=== PATIENT | female | born 1960 | race Caucasian/White ===

== ENCOUNTER 2017-06-20 13:17 | Emergency (ER) | payer MEDICAID ==
[~2017-06-20] VITALS: Ht 160 cm; Wt 45.5 kg
[~2017-06-20 13:17] MED LIST: ADV50500 IH; ALBU8HFA PO; DIPH1TAB PO; ONDA4TAB6 PO; PROM25TA14 PO; TRAZ-91 PO
[2017-06-20] MEDS ORDERED: methylPREDNISolone sod succ 125mg/2ml vial IV ONE (14:10)
[2017-06-20] MEDS ORDERED: normal saline 1000ML IV soln IVB ONE (14:10)
[2017-06-20] MEDS ORDERED: ipratropium/albuterol 3ml nebule NEB ONE (14:10)
[2017-06-20] MEDS ORDERED: acetaminophen 325mg tablet PO ONE (14:15)
[2017-06-20] MEDS ORDERED: ibuprofen tablet 400 MG TABLET PO ONE (14:15)
[2017-06-20 14:36] LABS: BASOPHILS % (AUTO) 0.1 % (0-1); EOSINOPHILS % (AUTO) 0 % (0-6); HEMATOCRIT 37.4 % (35.0-45.0); HEMOGLOBIN 13.3 g/dl (12.0-16.0); LYMPHOCYTES # (AUTO) 0.5 X10'3 (1.1-4.8); LYMPHOCYTES % (AUTO) 3.6 % (21-51); MEAN CORPUSCULAR HEMOGLOBIN 33.6 PG (27.0-31.0); MEAN CORPUSCULAR HGB CONC 35.5 % (33.0-36.5); MEAN CORPUSCULAR VOLUME 94.5 FL (78-98); MEAN PLATELET VOLUME 7.7 FL (7.4-10.4); MONOCYTES # (AUTO) 0.5 X10'3 (0-0.9); MONOCYTES % (AUTO) 3.8 % (2-12); NEUTROPHILS # (AUTO) 12.8 X10'3 (1.8-7.7); NEUTROPHILS % (AUTO) 92.5 % (42-75); PLATELET COUNT 117 X10'3 (140-440); RED BLOOD COUNT 3.96 X10'6 (4.20-5.60); RED CELL DISTRIBUTION WIDTH 14.1 % (11.5-14.5); WHITE BLOOD COUNT 13.9 X10'3 (4.5-11.0)
[2017-06-20 14:45] LABS: PARTIAL THROMBOPLASTIN TIME 31 SECONDS (22-32); PROTHROMBIN TIME 10.4 SECONDS (9.0-12.0)
[2017-06-20 14:56] LABS: ALANINE AMINOTRANSFERASE 34 U/L (12-78); ALBUMIN 2.8 G/DL (3.4-5.0); ALBUMIN/GLOBULIN RATIO 0.6 (1.1-1.5); ALKALINE PHOSPHATASE 70 IU/L (46-116); ANION GAP 13 (8-16); ASPARTATE AMINO TRANSFERASE 19 U/L (10-37); BILIRUBIN,TOTAL 0.4 MG/DL (0.1-1.0); BLOOD UREA NITROGEN 7 MG/DL (7-18); BUN/CREATININE RATIO 10.6 (6.6-38.0); CALCIUM 9.3 MG/DL (8.5-10.1); CHLORIDE 94 MMOL/L (99-107); CREATININE 0.66 MG/DL (0.40-0.90); GLUCOSE 114 MG/DL (70-104); POTASSIUM 3.2 MMOL/L (3.5-5.1); SODIUM 129 MMOL/L (135-145); TOTAL CARBON DIOXIDE 21.9 MMOL/L (24-32); TOTAL PROTEIN 7.6 G/DL (6.4-8.2); eGFR > 90 ML/MIN
[2017-06-20] MEDS ORDERED: potassium Cl oral solution 20 MEQ/15 ML PO ONE (15:00)
[2017-06-20 15:21] VITALS: BP 133/84
[2017-06-20] MEDS ORDERED: HYDROcodone/acetaminophen 5mg/325mg tablet PO ONE (16:00)
[2017-06-20] MEDS ORDERED: albuterol 2.5 MG/3 ML nebule NEB ONE (16:00)
[2017-06-20] MEDS ORDERED: IPRA3AMP IH (16:06)
[2017-06-20] MEDS ORDERED: LEVO500T2 PO (16:06)
== END 2017-06-20 16:32 | disposition home or self-care (01) ==
LOC: ER 13:17
DX: J18.1 Lobar pneumonia, unspecified organism (principal); E87.1 Hypo-osmolality and hyponatremia; E87.6 Hypokalemia; J44.9 Chronic obstructive pulmonary disease, unspecified; G89.29 Other chronic pain; K21.9 Gastro-esophageal reflux disease without esophagitis; F12.10 Cannabis abuse, uncomplicated; Z86.19 Personal history of other infectious and parasitic diseases; Z88.5 Allergy status to narcotic agent; Z79.899 Other long term (current) drug therapy; Z90.49 Acquired absence of other specified parts of digestive tract; Z98.890 Other specified postprocedural states
CPT/HCPCS: 36415; 71046; 80053; 83605; 83880; 84484; 85025; 85610; 85730; 87040; 87502; 87503; 93005; 94640; 94760; 96361; 96374; 99285; J2930; J7030

== ENCOUNTER 2019-09-11 19:11 | Emergency (ER) | payer MEDICAID ==
[~2019-09-11] VITALS: Ht 160 cm; Wt 52.3 kg
[~2019-09-11 19:11] MED LIST changes: +IPRA3AMP31 IH
[2019-09-11 20:05] VITALS: BP 129/98
== END 2019-09-11 20:08 | disposition home or self-care (01) ==
LOC: ER 19:12
DX: S93.401A Sprain of unspecified ligament of right ankle, initial encounter (principal); J44.9 Chronic obstructive pulmonary disease, unspecified; K21.9 Gastro-esophageal reflux disease without esophagitis; G89.29 Other chronic pain; F41.9 Anxiety disorder, unspecified; F32.9 Major depressive disorder, single episode, unspecified; F12.90 Cannabis use, unspecified, uncomplicated; F10.20 Alcohol dependence, uncomplicated; Z86.19 Personal history of other infectious and parasitic diseases; Z88.5 Allergy status to narcotic agent; Z79.899 Other long term (current) drug therapy; W19.XXXA Unspecified fall, initial encounter; Y93.89 Activity, other specified; Y92.89 Other specified places as the place of occurrence of the external cause; Y99.8 Other external cause status; Y90.0 Blood alcohol level of less than 20 mg/100 ml
CPT/HCPCS: 73610; 99284

== ENCOUNTER 2020-05-14 11:27 | Emergency (ER) | payer MEDICAID ==
[~2020-05-14] VITALS: Ht 160 cm; Wt 59.1 kg
[2020-05-14] MEDS ORDERED: aspirin 81mg tab.chew PO ONE (11:40)
[2020-05-14 12:10] LABS: BASOPHILS % (AUTO) 0.2 % (0-1); EOSINOPHILS # (AUTO) 0.1 X10'3 (0-0.9); HEMATOCRIT 43.3 % (35.0-45.0); HEMOGLOBIN 14.7 g/dl (12.0-16.0); LYMPHOCYTES # (AUTO) 1.1 X10'3 (1.1-4.8); LYMPHOCYTES % (AUTO) 16.7 % (21-51); MEAN CORPUSCULAR HEMOGLOBIN 31.1 PG (27.0-31.0); MEAN CORPUSCULAR HGB CONC 33.8 g/dL (33.0-36.5); MEAN PLATELET VOLUME 8.3 FL (7.4-10.4); MONOCYTES # (AUTO) 0.7 X10'3 (0-0.9); MONOCYTES % (AUTO) 10.3 % (2-12); NEUTROPHILS # (AUTO) 4.7 X10'3 (1.8-7.7); NEUTROPHILS % (AUTO) 71.8 % (42-75); PLATELET COUNT 151 X10'3 (140-440); RED BLOOD COUNT 4.71 X10'6 (4.20-5.60); RED CELL DISTRIBUTION WIDTH 14.1 % (11.5-14.5); WHITE BLOOD COUNT 6.6 X10'3 (4.5-11.0)
[2020-05-14 12:20] LABS: ALANINE AMINOTRANSFERASE 45 U/L (12-78); ALBUMIN 3.6 G/DL (3.4-5.0); ALBUMIN/GLOBULIN RATIO 0.8 (1.1-1.5); ALKALINE PHOSPHATASE 78 IU/L (46-116); ANION GAP 13 (8-16); ASPARTATE AMINO TRANSFERASE 35 U/L (10-37); BILIRUBIN,TOTAL 0.5 MG/DL (0.1-1.0); BLOOD UREA NITROGEN 10 MG/DL (7-18); BUN/CREATININE RATIO 12.3 (6.6-38.0); CALCIUM 9.7 MG/DL (8.5-10.1); CHLORIDE 100 MMOL/L (99-107); CREATININE 0.81 MG/DL (0.40-0.90); GLUCOSE 82 MG/DL (70-104); SODIUM 135 MMOL/L (135-145); TOTAL CARBON DIOXIDE 21.6 MMOL/L (24-32); TOTAL PROTEIN 8.1 G/DL (6.4-8.2); eGFR 72 ML/MIN
--- NOTE | 2020-05-14 12:21 | NUR ---
PT REFUSED TO GET AN IV PER PT SHE WANTS TO WAIT FOR LAB RESULT IF NEEDED THEN ONLY SHE WILL TAKE IT.
[2020-05-14 13:08] VITALS: BP 117/75
[2020-05-14] MEDS ORDERED: UMEC1DIS PO (19:55)
[2020-05-14] MEDS ORDERED: ALBU90AE (19:55)
[2020-05-14] MEDS ORDERED: TRAZ150T78 PO (19:55)
[2020-05-14] MEDS ORDERED: PROC10TA10 PO (20:02)
[2020-05-14] MEDS ORDERED: MELO-100 PO (20:02)
[2020-05-14] MEDS ORDERED: FLUT1BLS4 PO (20:02)
[2020-05-14] MEDS ORDERED: BACL20TA PO (20:03)
[2020-05-15] MEDS ORDERED: ALBU8HFA PO (08:51)
== END 2020-05-14 13:11 | disposition home or self-care (01) ==
LOC: ER 11:27
DX: R07.89 Other chest pain (principal); R06.02 Shortness of breath; R05 Cough; Z20.822 Contact with and (suspected) exposure to COVID-19; J44.9 Chronic obstructive pulmonary disease, unspecified; K21.9 Gastro-esophageal reflux disease without esophagitis; G89.29 Other chronic pain; F41.9 Anxiety disorder, unspecified; F32.9 Major depressive disorder, single episode, unspecified; F12.90 Cannabis use, unspecified, uncomplicated; F19.90 Other psychoactive substance use, unspecified, uncomplicated; Z86.19 Personal history of other infectious and parasitic diseases; Z90.89 Acquired absence of other organs; Z90.49 Acquired absence of other specified parts of digestive tract; Z98.890 Other specified postprocedural states; Z72.89 Other problems related to lifestyle; Z88.5 Allergy status to narcotic agent; Z79.899 Other long term (current) drug therapy
CPT/HCPCS: 36415; 71045; 80053; 84484; 85025; 87635; 93005; 99285

== ENCOUNTER 2020-05-14 17:41 | Inpatient (IN) | payer MEDICAID ==
[~2020-05-14] VITALS: Ht 154.9 cm; Wt 61.2 kg
[2020-05-14] MEDS ORDERED: LORazepam 2 mg/ml vial IV ONE (19:00)
[2020-05-14 19:16] LABS: ETHANOL 0.041 GM/DL (0.0-0.010); TROPONIN I < 0.04 NG/ML (0.0-0.05)
[2020-05-14] MEDS ORDERED: mag hydrox/Alum hydrox/simeth 30ml oral suspension PO PRN (19:40)
[2020-05-14] MEDS ORDERED: magnesium hydroxide 30ml (MOM) UD suspension PO PRN (19:40)
[2020-05-14] MEDS ORDERED: aminophylline 250mg/10ml inj. IV PRN (19:40)
[2020-05-14] MEDS ORDERED: ondansetron/PF 4mg/2ml inj IV PRN (19:40)
[2020-05-14] MEDS ORDERED: magnesium 2GM in 50ml NS 50 ML IV PRN (19:40)
[2020-05-14] MEDS ORDERED: regadenoson 0.4mg/5ml syringe IV PRN (19:40)
[2020-05-14] MEDS ORDERED: potassium Cl 40MEQ/1/2NS 520ml 520 ML IV PRN ×2 (19:40)
[2020-05-14] MEDS ORDERED: acetaminophen 325mg tablet PO PRN (19:40)
[2020-05-14] MEDS ORDERED: potassium Cl 20 mEq SR tablet PO PRN ×2 (19:40)
[2020-05-14] MEDS ORDERED: nitroGLYCERIN 0.4mg SUBLingual tab SL PRN ×2 (19:40→19:50)
[2020-05-14] MEDS ORDERED: magnesium Cl slow-release 64mg tablet PO PRN (19:40)
[2020-05-14] MEDS ORDERED: metoprolol tartrate 1mg/ml inj IV PRN (19:40)
[2020-05-14] MEDS ORDERED: magnesium 4gm in 100ml NS 100 ML IV PRN (19:40)
[2020-05-14] MEDS ORDERED: aspirin 81mg tab.chew PO ONE (19:50)
[2020-05-14] MEDS ORDERED: ALBU90AE (19:55)
[2020-05-14] MEDS ORDERED: UMEC1DIS PO (19:55)
[2020-05-14] MEDS ORDERED: TRAZ150T78 PO (19:55)
[2020-05-14 19:59] LABS: CLARITY,URINE CLEAR (Clear); COLOR,URINE YELLOW (Yellow); GLUCOSE, URINE NEGATIVE (Neg); KETONES,URINE NEGATIVE (Neg); LEUKOCYTE ESTERASE ,URINE NEGATIVE (Neg); NITRITES, URINE NEGATIVE (Neg); OCCULT BLOOD,URINE NEGATIVE (Neg); PH,URINE 5.5 (4.8-8.0); PROTEIN,URINE NEGATIVE (Neg); UROBILINOGEN,URINE 0.2 E.U/dL (0.2-1.0)
[2020-05-14 20:00] LABS: UA COLLECTION TYPE CLN CATCH MIDSTREAM
[2020-05-14] MEDS: K and/or MAG REPLACEMENT MC SCH (20:00)
[2020-05-14] MEDS ORDERED: FLUT1BLS4 PO (20:02)
[2020-05-14] MEDS ORDERED: PROC10TA10 PO (20:02)
[2020-05-14] MEDS ORDERED: MELO-100 PO (20:02)
[2020-05-14] MEDS ORDERED: BACL20TA PO (20:03)
[2020-05-14 20:10] LABS: URINE AMPHETAMINE SCREEN POSITIVE (Neg); URINE BARBITUATE SCREEN NEGATIVE (Neg); URINE BENZODIAZEPINES SCREEN NEGATIVE (Neg); URINE CANNABINOID SCREEN POSITIVE (Neg); URINE COCAINE SCREEN NEGATIVE (Neg); URINE METHADONE SCREEN NEGATIVE (Neg); URINE OPIATE SCREEN NEGATIVE (Neg); URINE PHENCYCLIDINE SCREEN NEGATIVE (Neg)
[2020-05-14 21:38] VITALS: BP 105/69
--- NOTE | 2020-05-14 22:47 | NUR ---
Page Sent PAGER ID: [phone] MESSAGE: Rosa Ochoa [id number] New admit, came in for Chest Pain. Asking if she can take her PM dose of trazodone & baclofen. Also requesting a nicotine patch and if she can eat something before midnight. thank you
--- NOTE | 2020-05-14 22:48 | NUR ---
Patient in room PCU 3027. I have received report from Charity and had the opportunity to ask questions and assume patient care.
[2020-05-14] MEDS ORDERED: nicotine 21mg patch - 24 hr TD ONE (22:50)
[2020-05-14] MEDS ORDERED: baclofen 10mg tablet PO SCH (23:15)
--- NOTE | 2020-05-14 23:46 | NUR ---
Page Sent promotional table spacer PAGER ID: [phone] MESSAGE: Rosa Ochoa [id number] This patient states she takes 100mg of baclofen at bedtime. When I went to pull the medication it was ten 10 mg tablets to give and I wasn't too sure if that dose was okay to give or not. Thank you, Cameron Granados [phone]
[2020-05-14] MEDS: traZODone 150mg tablet PO SCH (23:56)
[2020-05-15 02:00] VITALS: BP 117/72
--- NOTE | 2020-05-15 06:27 | NUR ---
Problems reprioritized. Patient report given, questions answered & plan of care reviewed with dwaine.
[2020-05-15 06:41] LABS: BASOPHILS % (AUTO) 0.3 % (0-1); EOSINOPHILS # (AUTO) 0.1 X10'3 (0-0.9); EOSINOPHILS % (AUTO) 1.9 % (0-6); HEMATOCRIT 40.2 % (35.0-45.0); HEMOGLOBIN 13.6 g/dl (12.0-16.0); LYMPHOCYTES # (AUTO) 0.9 X10'3 (1.1-4.8); MEAN CORPUSCULAR HEMOGLOBIN 31.3 PG (27.0-31.0); MEAN CORPUSCULAR HGB CONC 33.8 g/dL (33.0-36.5); MEAN CORPUSCULAR VOLUME 92.7 FL (78-98); MEAN PLATELET VOLUME 8.6 FL (7.4-10.4); MONOCYTES # (AUTO) 0.6 X10'3 (0-0.9); MONOCYTES % (AUTO) 12.9 % (2-12); NEUTROPHILS # (AUTO) 2.8 X10'3 (1.8-7.7); NEUTROPHILS % (AUTO) 63.9 % (42-75); PLATELET COUNT 127 X10'3 (140-440); RED BLOOD COUNT 4.33 X10'6 (4.20-5.60); RED CELL DISTRIBUTION WIDTH 14.2 % (11.5-14.5); WHITE BLOOD COUNT 4.3 X10'3 (4.5-11.0)
[2020-05-15 06:57] LABS: ALANINE AMINOTRANSFERASE 37 U/L (12-78); ALBUMIN 3.1 G/DL (3.4-5.0); ALBUMIN/GLOBULIN RATIO 0.8 (1.1-1.5); ALKALINE PHOSPHATASE 75 IU/L (46-116); ANION GAP 8 (8-16); ASPARTATE AMINO TRANSFERASE 27 U/L (10-37); BILIRUBIN,TOTAL 0.5 MG/DL (0.1-1.0); BLOOD UREA NITROGEN 14 MG/DL (7-18); BUN/CREATININE RATIO 18.2 (6.6-38.0); CHLORIDE 104 MMOL/L (99-107); CREATININE 0.77 MG/DL (0.40-0.90); GLUCOSE 98 MG/DL (70-104); POTASSIUM 4.3 MMOL/L (3.5-5.1); SODIUM 139 MMOL/L (135-145); TOTAL CARBON DIOXIDE 26.6 MMOL/L (24-32); TOTAL PROTEIN 7.1 G/DL (6.4-8.2); eGFR 76 ML/MIN
--- NOTE | 2020-05-15 07:29 | NUR ---
PAGER ID: [phone] MESSAGE: Esther PALOMARES 327B: [facility] IS REQUESTING A SECOND TROPONIN BEFORE STRESS TEST. THANKS, EMILE [phone]
[2020-05-15 07:45] VITALS: BP 116/79
[2020-05-15] MEDS: K and/or MAG REPLACEMENT MC SCH ×2 (08:00→20:00)
[2020-05-15] MEDS: aspirin 81mg tab.chew PO SCH (08:00)
[2020-05-15] MEDS: nicotine 21mg patch - 24 hr TD SCH (08:03)
[2020-05-15] MEDS ORDERED: ALBU8HFA PO (08:51)
[2020-05-15] MEDS ORDERED: LORazepam 1 MG tablet PO PRN (09:40)
[2020-05-15] MEDS ORDERED: FLU VACC QS2020-21(6MOS UP)/PF 60 MCG/0.5 ML SYRINGE IMVAC ONE (10:00)
[2020-05-15] MEDS ORDERED: pneumococcal 23-VAL P-sac vacc 25 mcg/0.5ml vial IMVAC ONE (10:00)
[2020-05-15] MEDS: LORazepam 2 mg/ml vial IV PRN ×2 (10:36→19:10)
[2020-05-15 12:00] VITALS: BP 135/82
--- NOTE | 2020-05-15 13:55 | NUR ---
PAGER ID: [phone] MESSAGE: Esther PALOMARES [id number]: PATIENT REQUESTING THAT YOU REVIEW ECHO WITH HER WHEN YOU GET A CHANCE. THANKS! EMILE [phone]
--- NOTE | 2020-05-15 14:17 | NUR ---
Problems reprioritized. Patient report given, questions answered & plan of care reviewed with KRISTY FRANCISCO.
--- NOTE | 2020-05-15 14:21 | NUR ---
Received report from Yissel WAGNER. Pt. is room in no distress at this time.
[2020-05-15 15:00] VITALS: BP 119/77
[2020-05-15] MEDS: morphine 2 MG/ML inj. syringe IV PRN ×2 (16:02→20:02)
[2020-05-15 18:00] VITALS: BP 118/72
--- NOTE | 2020-05-15 18:18 | NUR ---
Gave report to Benita WAGNER.
--- NOTE | 2020-05-15 18:30 | NUR ---
Patient in room PCU 3027. I have received report from Marybeth WAGNER and had the opportunity to ask questions and assume patient care.
[2020-05-15] MEDS: traZODone 150mg tablet PO SCH (20:04)
[2020-05-15] MEDS ORDERED: traZODone 150mg tablet PO SCH (21:00)
[2020-05-15] MEDS ORDERED: BACLOFEN PO SCH (21:00)
[2020-05-15 22:00] VITALS: BP 100/52
[2020-05-16] VITALS (9 sets, daily range): BP systolic 96–130; BP diastolic 56–83
--- NOTE | 2020-05-16 06:14 | NUR ---
Patient in room PCU 3027. I have received report from Benita WAGNER and had the opportunity to ask questions and assume patient care.
--- NOTE | 2020-05-16 06:34 | NUR ---
Problems reprioritized. Patient report given, questions answered & plan of care reviewed with Marlin WAGNER.
[2020-05-16 06:36] LABS: BASOPHILS % (AUTO) 0.2 % (0-1); EOSINOPHILS # (AUTO) 0.1 X10'3 (0-0.9); EOSINOPHILS % (AUTO) 1.7 % (0-6); HEMATOCRIT 41.3 % (35.0-45.0); LYMPHOCYTES # (AUTO) 0.7 X10'3 (1.1-4.8); LYMPHOCYTES % (AUTO) 16.6 % (21-51); MEAN CORPUSCULAR HEMOGLOBIN 31.5 PG (27.0-31.0); MEAN CORPUSCULAR HGB CONC 33.8 g/dL (33.0-36.5); MEAN CORPUSCULAR VOLUME 93.1 FL (78-98); MEAN PLATELET VOLUME 8.7 FL (7.4-10.4); MONOCYTES # (AUTO) 0.5 X10'3 (0-0.9); MONOCYTES % (AUTO) 11.4 % (2-12); NEUTROPHILS # (AUTO) 2.9 X10'3 (1.8-7.7); NEUTROPHILS % (AUTO) 70.1 % (42-75); PLATELET COUNT 119 X10'3 (140-440); RED BLOOD COUNT 4.43 X10'6 (4.20-5.60); RED CELL DISTRIBUTION WIDTH 13.8 % (11.5-14.5); WHITE BLOOD COUNT 4.1 X10'3 (4.5-11.0)
[2020-05-16 07:08] LABS: ALANINE AMINOTRANSFERASE 40 U/L (12-78); ALBUMIN 3.1 G/DL (3.4-5.0); ALBUMIN/GLOBULIN RATIO 0.8 (1.1-1.5); ALKALINE PHOSPHATASE 70 IU/L (46-116); ANION GAP 8 (8-16); ASPARTATE AMINO TRANSFERASE 27 U/L (10-37); BILIRUBIN,TOTAL 0.6 MG/DL (0.1-1.0); BLOOD UREA NITROGEN 14 MG/DL (7-18); BUN/CREATININE RATIO 16.5 (6.6-38.0); CHLORIDE 102 MMOL/L (99-107); CREATININE 0.85 MG/DL (0.40-0.90); GLUCOSE 107 MG/DL (70-104); LIPASE 105 U/L (73-393); MAGNESIUM 1.9 MG/DL (1.5-2.4); PHOSPHORUS 3.8 MG/DL (2.3-4.5); POTASSIUM 4.2 MMOL/L (3.5-5.1); SODIUM 136 MMOL/L (135-145); TOTAL CARBON DIOXIDE 26.2 MMOL/L (24-32); TOTAL PROTEIN 7.2 G/DL (6.4-8.2); eGFR 68 ML/MIN
[2020-05-16] MEDS: K and/or MAG REPLACEMENT MC SCH (08:00)
[2020-05-16] MEDS ORDERED: regadenoson 0.4mg/5ml syringe IV PRN (09:26)
[2020-05-16] MEDS: LORazepam 2 mg/ml vial IV PRN (11:06)
[2020-05-16] MEDS: aspirin 81mg tab.chew PO SCH (11:08)
[2020-05-16] MEDS: nicotine 21mg patch - 24 hr TD SCH (11:09)
[2020-05-16] MEDS ORDERED: PANT40TA54 PO (12:49)
[2020-05-16] MEDS ORDERED: BACL20TA PO (13:27)
--- NOTE | 2020-05-16 13:58 | NUR ---
patient went for lexiscan. seen by Dr bey is for discharge. All Dc instructions given to patient. PIV removed intact from [facility]. Patient drove self home in private car. In stable condition.
== END 2020-05-16 13:50 | disposition home or self-care (01) | DRG 198 ==
LOC: ER 17:41 → ED HOLD 19:40 → OBSVTOIN 19:40 → PCU 3S 21:38
PROVIDERS: ADMIT Family Medicine; ATTEND Family Medicine
PROC: 3E0234Z Introduction of Serum, Toxoid and Vaccine into Muscle, Percutaneous Approach (ICD-10-PCS; principal; 2020-05-15)
PROC: 3E02340 Introduction of Influenza Vaccine into Muscle, Percutaneous Approach (ICD-10-PCS; 2020-05-15)
PROC: 4A02XM4 Measurement of Cardiac Total Activity, External Approach (ICD-10-PCS; 2020-05-16)
PROC: 3E073KZ Introduction of Other Diagnostic Substance into Coronary Artery, Percutaneous Approach (ICD-10-PCS; 2020-05-16)
DX: I24.9 Acute ischemic heart disease, unspecified (principal); J44.9 Chronic obstructive pulmonary disease, unspecified; B19.20 Unspecified viral hepatitis C without hepatic coma; F17.210 Nicotine dependence, cigarettes, uncomplicated; K21.9 Gastro-esophageal reflux disease without esophagitis; G89.29 Other chronic pain; F10.20 Alcohol dependence, uncomplicated; Z20.822 Contact with and (suspected) exposure to COVID-19; F32.9 Major depressive disorder, single episode, unspecified; F15.10 Other stimulant abuse, uncomplicated; F12.10 Cannabis abuse, uncomplicated; F41.9 Anxiety disorder, unspecified; M54.9 Dorsalgia, unspecified; Z23 Encounter for immunization; Z88.5 Allergy status to narcotic agent; Z90.49 Acquired absence of other specified parts of digestive tract; Z79.899 Other long term (current) drug therapy; Z71.51 Drug abuse counseling and surveillance of drug abuser
CPT/HCPCS: 36415; 78452; 80053; 80305; 80320; 81003; 82948; 83690; 83735; 84100; 84484; 85025; 87081; 87635; 90732; 93005; 93017; 93306; 93308; 97116; 97162; 99285; A9500; C9803; G0378; J2060; J2270; J2785; Q2039

== ENCOUNTER 2021-03-15 11:34 | Emergency (ER) | payer MEDICAID ==
[~2021-03-15] VITALS: Ht 160 cm; Wt 81.8 kg
[~2021-03-15 11:34] MED LIST changes: -ADV50500 IH; +ALBU90AE; +BACL20TA PO; +FLUT1BLS4 PO; -IPRA3AMP31 IH; -ONDA4TAB6 PO; +PANT40TA54 PO; +PROC10TA10 PO; -PROM25TA14 PO; -TRAZ-91 PO; +TRAZ150T78 PO
[2021-03-15] MEDS ORDERED: BUPIVAcaine 0.5% W/EPI /PF 30ml vial IM ONE (16:40)
[2021-03-15] MEDS ORDERED: triamcinolone acetonide 40mg/ml inj IM ONE (16:40)
[2021-03-15] MEDS ORDERED: BUPIVAcaine 0.5% W/EPI /PF 10ml vial IJ ONE (16:50)
== END 2021-03-15 17:18 | disposition home or self-care (01) ==
LOC: ER 11:35
DX: M25.512 Pain in left shoulder (principal); K21.9 Gastro-esophageal reflux disease without esophagitis; G89.29 Other chronic pain; F12.10 Cannabis abuse, uncomplicated; F41.9 Anxiety disorder, unspecified; F32.9 Major depressive disorder, single episode, unspecified; J44.9 Chronic obstructive pulmonary disease, unspecified; Z88.5 Allergy status to narcotic agent; X58.XXXA Exposure to other specified factors, initial encounter; Y93.89 Activity, other specified; Y92.89 Other specified places as the place of occurrence of the external cause; Y99.8 Other external cause status
CPT/HCPCS: 20610; 73030; 99284

== ENCOUNTER 2022-02-07 10:56 | Emergency (ER) | payer MEDICAID ==
[~2022-02-07] VITALS: Ht 160 cm; Wt 49.0 kg
[2022-02-07 11:22] VITALS: BP 125/79
== END 2022-02-07 11:52 | disposition home or self-care (01) ==
LOC: ER 10:56
DX: G47.00 Insomnia, unspecified (principal); K21.9 Gastro-esophageal reflux disease without esophagitis; G89.29 Other chronic pain; M54.9 Dorsalgia, unspecified; F41.9 Anxiety disorder, unspecified; Z79.899 Other long term (current) drug therapy; Z90.49 Acquired absence of other specified parts of digestive tract; Z98.890 Other specified postprocedural states; Z88.5 Allergy status to narcotic agent
CPT/HCPCS: 99281

== ENCOUNTER 2022-06-14 09:09 | Emergency (ER) | payer MEDICAID | END 2022-06-14 10:12 | disposition left against medical advice (07) | LOC: ER 09:10 | DX: K92.1 Melena (principal); Z53.21 Procedure and treatment not carried out due to patient leaving prior to being seen by health care provider ==

== ENCOUNTER 2022-06-14 11:16 | Emergency (ER) | payer MEDICAID ==
[~2022-06-14] VITALS: Ht 160 cm; Wt 57.7 kg
[2022-06-14] MEDS ORDERED: pantoprazole 40mg IV 80 MG in normal saline 100ml IV soln 100 ML IV STA (17:21)
[2022-06-14 17:29] LABS: BASOPHILS % (AUTO) 0.3 % (0-1); EOSINOPHILS # (AUTO) 0.2 X10'3 (0-0.9); EOSINOPHILS % (AUTO) 2.5 % (0-6); HEMATOCRIT 46.4 % (35.0-45.0); HEMOGLOBIN 15.4 g/dl (12.0-16.0); LYMPHOCYTES # (AUTO) 1.2 X10'3 (1.1-4.8); LYMPHOCYTES % (AUTO) 16.6 % (21-51); MEAN CORPUSCULAR HEMOGLOBIN 30.2 PG (27.0-31.0); MEAN CORPUSCULAR HGB CONC 33.2 g/dL (33.0-36.5); MEAN PLATELET VOLUME 8.4 FL (7.4-10.4); MONOCYTES # (AUTO) 0.5 X10'3 (0-0.9); MONOCYTES % (AUTO) 7.3 % (2-12); NEUTROPHILS # (AUTO) 5.2 X10'3 (1.8-7.7); NEUTROPHILS % (AUTO) 73.3 % (42-75); PLATELET COUNT 172 X10'3 (140-440); RED CELL DISTRIBUTION WIDTH 14.2 % (11.5-14.5); WHITE BLOOD COUNT 7.1 X10'3 (4.5-11.0)
[2022-06-14 17:38] LABS: ALANINE AMINOTRANSFERASE 33 U/L (12-78); ALBUMIN 3.6 G/DL (3.4-5.0); ALBUMIN/GLOBULIN RATIO 0.8 (1.1-1.5); ALKALINE PHOSPHATASE 86 IU/L (46-116); ANION GAP 9 (8-16); ASPARTATE AMINO TRANSFERASE 37 U/L (10-37); BILIRUBIN,TOTAL 0.9 MG/DL (0.1-1.0); BLOOD UREA NITROGEN 6 MG/DL (7-18); BUN/CREATININE RATIO 7.1 (6.6-38.0); CALCIUM 9.6 MG/DL (8.5-10.1); CHLORIDE 101 MMOL/L (99-107); CREATININE 0.84 MG/DL (0.40-0.90); ETHANOL < 0.010 GM/DL (0.0-0.010); GLUCOSE 97 MG/DL (70-104); POTASSIUM 4.1 MMOL/L (3.5-5.1); SODIUM 135 MMOL/L (135-145); TOTAL CARBON DIOXIDE 24.8 MMOL/L (24-32); TOTAL PROTEIN 8.2 G/DL (6.4-8.2); eGFR 68 ML/MIN
[2022-06-14] MEDS: diatr meglu/diatrizoate 30ml oral sol.-(3 dose) bottle PO SCH ×3 (18:11→19:55)
[2022-06-14 18:15] LABS: APTT 26 SECONDS (22-32)
[2022-06-14] MEDS ORDERED: iohexol 300mg/ml 100ml inj. ONE (18:21)
[2022-06-14 18:56] LABS: OCCULT BLOOD STOOL POSITIVE (Neg)
[2022-06-14 18:57] LABS: CLARITY,URINE CLEAR (Clear); COLOR,URINE YELLOW (Yellow); GLUCOSE, URINE NEGATIVE (Neg); KETONES,URINE NEGATIVE (Neg); LEUKOCYTE ESTERASE ,URINE NEGATIVE (Neg); NITRITES, URINE NEGATIVE (Neg); OCCULT BLOOD,URINE NEGATIVE (Neg); PROTEIN,URINE NEGATIVE (Neg); UROBILINOGEN,URINE 0.2 E.U/dL (0.2-1.0)
[2022-06-14 19:10] LABS: UA COLLECTION TYPE CLN CATCH MIDSTREAM
[2022-06-14] MEDS ORDERED: acetaminophen 325mg tablet PO ONE (19:30)
[2022-06-14] MEDS ORDERED: normal saline 1000ML IV soln IVB ONE (19:30)
[2022-06-14] MEDS ORDERED: LORazepam 2 mg/ml vial IV ONE (19:35)
[2022-06-14 19:48] VITALS: BP 120/70
[2022-06-14] MEDS ORDERED: pantoprazole 40MG/NS 100ML BAG 100 ML IV SCH (21:00)
[2022-06-14] MEDS ORDERED: pantoprazole 40mg IV 40 MG in normal saline 100ml IV soln 100 ML IV SCH (21:00)
== END 2022-06-14 21:22 | disposition home or self-care (01) ==
LOC: ER 11:16
DX: K92.2 Gastrointestinal hemorrhage, unspecified (principal); N28.1 Cyst of kidney, acquired; E27.9 Disorder of adrenal gland, unspecified; J44.9 Chronic obstructive pulmonary disease, unspecified; G89.29 Other chronic pain; F41.9 Anxiety disorder, unspecified; F32.9 Major depressive disorder, single episode, unspecified; F12.90 Cannabis use, unspecified, uncomplicated; Z86.19 Personal history of other infectious and parasitic diseases; Z90.49 Acquired absence of other specified parts of digestive tract; Z98.890 Other specified postprocedural states; Z72.89 Other problems related to lifestyle; Z88.5 Allergy status to narcotic agent; Z79.899 Other long term (current) drug therapy
CPT/HCPCS: 36415; 71045; 74177; 80053; 80320; 81003; 82272; 85025; 85610; 85730; 86885; 86900; 86901; 93005; 96365; 96366; 96375; 99285; C9113; J2060; J3490; J7030; Q9963; Q9967

== ENCOUNTER 2023-02-19 10:19 | Emergency (ER) | payer MEDICAID ==
[~2023-02-19] VITALS: Ht 160 cm; Wt 56.9 kg
[~2023-02-19 10:19] MED LIST changes: -PROC10TA10 PO; +PROC10TA97 PO
[2023-02-19 11:16] LABS: BASOPHILS # (AUTO) 0.1 X10'3 (0-0.2); EOSINOPHILS # (AUTO) 0.1 X10'3 (0-0.9); EOSINOPHILS % (AUTO) 1.4 % (0-6); HEMATOCRIT 43.1 % (35.0-45.0); HEMOGLOBIN 14.5 g/dl (12.0-16.0); LYMPHOCYTES # (AUTO) 0.6 X10'3 (1.1-4.8); LYMPHOCYTES % (AUTO) 8.1 % (21-51); MEAN CORPUSCULAR HEMOGLOBIN 31.1 PG (27.0-31.0); MEAN CORPUSCULAR HGB CONC 33.5 g/dL (33.0-36.5); MEAN CORPUSCULAR VOLUME 92.9 FL (78-98); MEAN PLATELET VOLUME 8.8 FL (7.4-10.4); MONOCYTES # (AUTO) 0.5 X10'3 (0-0.9); MONOCYTES % (AUTO) 6.9 % (2-12); NEUTROPHILS # (AUTO) 5.6 X10'3 (1.8-7.7); NEUTROPHILS % (AUTO) 81.6 % (42-75); PLATELET COUNT 139 X10'3 (140-440); RED BLOOD COUNT 4.64 X10'6 (4.20-5.60); RED CELL DISTRIBUTION WIDTH 13.6 % (11.5-14.5); WHITE BLOOD COUNT 6.9 X10'3 (4.5-11.0)
[2023-02-19 11:33] LABS: ALANINE AMINOTRANSFERASE 30 U/L (12-78); ALBUMIN/GLOBULIN RATIO 0.7 (1.1-1.5); ALKALINE PHOSPHATASE 99 IU/L (46-116); ANION GAP 7 (8-16); ASPARTATE AMINO TRANSFERASE 30 U/L (10-37); BILIRUBIN,TOTAL 0.5 MG/DL (0.1-1.0); BLOOD UREA NITROGEN 5 MG/DL (7-18); CALCIUM 9.8 MG/DL (8.5-10.1); CHLORIDE 100 MMOL/L (99-107); CREATININE 0.83 MG/DL (0.40-0.90); GLUCOSE 100 MG/DL (70-104); POTASSIUM 4.1 MMOL/L (3.5-5.1); SODIUM 136 MMOL/L (135-145); TOTAL CARBON DIOXIDE 28.8 MMOL/L (24-32); TOTAL PROTEIN 7.3 G/DL (6.4-8.2); eCRCL 57 ML/MIN; eGFR 69 ML/MIN
[2023-02-19 11:40] LABS: PRO BRAIN NATRIURETIC PEPTIDE 118 PG/ML (0-125)
[2023-02-19 12:20] VITALS: BP 108/65; PULSE 77; RESP 18; TEMP 98.5; O2SAT 97
[2023-02-19] MEDS ORDERED: DOXY-1 PO (12:46)
[2023-02-19] MEDS ORDERED: PRED50TA PO (12:46)
[2023-02-19] MEDS ORDERED: ALBU18HF2 INH (12:46)
[2023-02-19] MEDS ORDERED: GUAI600T45 PO (12:53)
== END 2023-02-19 12:51 | disposition home or self-care (01) ==
LOC: ER 10:19
DX: J44.1 Chronic obstructive pulmonary disease with (acute) exacerbation (principal); J44.9 Chronic obstructive pulmonary disease, unspecified; G89.29 Other chronic pain; F12.90 Cannabis use, unspecified, uncomplicated; Z72.89 Other problems related to lifestyle; Z90.49 Acquired absence of other specified parts of digestive tract; Z98.891 History of uterine scar from previous surgery; Z88.8 Allergy status to other drugs, medicaments and biological substances; Z79.2 Long term (current) use of antibiotics; Z79.899 Other long term (current) drug therapy
CPT/HCPCS: 36415; 71045; 80053; 83880; 84484; 85025; 99284

== ENCOUNTER 2023-05-08 13:06 | Inpatient (IN) | payer MEDICAID ==
[~2023-05-08] VITALS: Ht 160 cm; Wt 52.2 kg
[~2023-05-08 13:06] MED LIST changes: +ALBU18HF2 INH; +GUAI600T45 PO; +PRED50TA PO
[2023-05-08] MEDS ORDERED: ipratropium/albuterol 3ml nebule NEB ONE (13:25)
[2023-05-08] MEDS ORDERED: methylPREDNISolone sod succ 125mg/2ml vial IV ONE (13:25)
[2023-05-08 13:52] VITALS: PULSE 70; RESP 22
[2023-05-08 13:58] VITALS: PULSE 71; RESP 24
[2023-05-08 14:19] LABS: BASOPHILS % (AUTO) 0.3 % (0-1); EOSINOPHILS # (AUTO) 0.1 X10'3 (0-0.9); EOSINOPHILS % (AUTO) 1.9 % (0-6); HEMOGLOBIN 15.4 g/dl (12.0-16.0); LYMPHOCYTES # (AUTO) 0.9 X10'3 (1.1-4.8); LYMPHOCYTES % (AUTO) 14.6 % (21-51); MEAN CORPUSCULAR HEMOGLOBIN 31.3 PG (27.0-31.0); MEAN CORPUSCULAR HGB CONC 33.4 g/dL (33.0-36.5); MEAN CORPUSCULAR VOLUME 93.7 FL (78-98); MEAN PLATELET VOLUME 8.7 FL (7.4-10.4); MONOCYTES # (AUTO) 0.4 X10'3 (0-0.9); MONOCYTES % (AUTO) 6.8 % (2-12); NEUTROPHILS # (AUTO) 4.5 X10'3 (1.8-7.7); NEUTROPHILS % (AUTO) 76.4 % (42-75); PLATELET COUNT 150 X10'3 (140-440); RED BLOOD COUNT 4.91 X10'6 (4.20-5.60); WHITE BLOOD COUNT 5.9 X10'3 (4.5-11.0)
[2023-05-08] MEDS ORDERED: aspirin 81mg tab.chew PO ONE (14:30)
[2023-05-08] MEDS ORDERED: guaiFENesin/DM 10ml UD oral syrup PO ONE (14:30)
[2023-05-08] MEDS ORDERED: CefTRIAXone 1000mg IM Kit (w/lidocaine diluent) IM ONE (14:30)
[2023-05-08] MEDS ORDERED: ondansetron/PF 4mg/2ml inj IV ONE (14:30)
[2023-05-08] MEDS ORDERED: albuterol 2.5 MG/3 ML nebule CONTNEB PRN (14:30)
[2023-05-08] MEDS ORDERED: acetaminophen 325mg tablet PO ONE (14:30)
[2023-05-08] MEDS ORDERED: normal saline 1000ml 1,000 ML IV ONE (14:30)
[2023-05-08 14:31] LABS: ALBUMIN 3.2 G/DL (3.4-5.0); ANION GAP 10 (8-16); BLOOD UREA NITROGEN 6 MG/DL (7-18); CHLORIDE 100 MMOL/L (99-107); CREATININE 0.75 MG/DL (0.40-0.90); GLUCOSE 81 MG/DL (70-104); SODIUM 135 MMOL/L (135-145); TOTAL CARBON DIOXIDE 25.1 MMOL/L (24-32); eCRCL 62 ML/MIN; eGFR 78 ML/MIN
[2023-05-08 14:37] LABS: POTASSIUM 4.2 MMOL/L (3.5-5.1)
[2023-05-08 14:58] LABS: ABG BASE EXCESS 0.3 mmol/L (-2.0-2.0); ABG HCO3 21.4 mmol/L (22.0-26.0); ABG OXYGEN SATURATION 97.9 % (94-97); ABG PCO2 (T) 26.1 mmHg (32.0-45.0); ABG PH (T) 7.532 (7.350-7.450); ALLEN'S TEST POSITIVE; FCOHb 0.5 % (0.0-3.9); FHHb 2.1 % (0.0-5.0); FLOW 3 L/min; FMetHb 0.1 % (0.0-1.5); FO2Hb 97.3 % (94-97); MODE NASAL CANNULA; PATIENT TEMPERATURE 36.7; TOTAL HEMOGLOBIN 15.4 G/dl (12.0-16.0)
[2023-05-08 15:41] LABS: BILIRUBIN,URINE NEGATIVE (Neg); CLARITY,URINE CLEAR (Clear); COLOR,URINE YELLOW (Yellow); GLUCOSE, URINE NEGATIVE (Neg); KETONES,URINE NEGATIVE (Neg); LEUKOCYTE ESTERASE ,URINE NEGATIVE (Neg); NITRITES, URINE NEGATIVE (Neg); OCCULT BLOOD,URINE NEGATIVE (Neg); PH,URINE 6.5 (4.8-8.0); PROTEIN,URINE NEGATIVE (Neg); UROBILINOGEN,URINE 0.2 E.U/dL (0.2-1.0)
[2023-05-08 15:55] LABS: PRO BRAIN NATRIURETIC PEPTIDE 93 PG/ML (0-125)
[2023-05-08 15:55] LABS: UA COLLECTION TYPE VOIDED
[2023-05-08] MEDS ORDERED: ipratropium 0.5 MG/2.5ML nebule IH SCH (16:00)
[2023-05-08] MEDS ORDERED: mag hydrox/Alum hydrox/simeth 30ml oral suspension PO PRN (16:20)
[2023-05-08] MEDS ORDERED: magnesium hydroxide 30ml (MOM) UD suspension PO PRN (16:20)
[2023-05-08] MEDS ORDERED: docusate sod 100mg capsule PO PRN (16:20)
[2023-05-08] MEDS ORDERED: magnesium 4gm in 100ml NS 100 ML IV PRN (16:20)
[2023-05-08] MEDS ORDERED: nicotine 21mg patch - 24 hr TD ONE (16:20)
[2023-05-08] MEDS ORDERED: ipratropium/albuterol 3ml nebule NEB PRN (16:20)
[2023-05-08] MEDS ORDERED: potassium Cl 40MEQ/1/2NS 520ml 520 ML IV PRN (16:20)
[2023-05-08] MEDS ORDERED: potassium Cl 20 mEq SR tablet PO PRN ×2 (16:20)
[2023-05-08] MEDS ORDERED: ondansetron/PF 4mg/2ml inj IV PRN (16:20)
[2023-05-08] MEDS ORDERED: acetaminophen 325mg tablet PO PRN (16:20)
[2023-05-08] MEDS ORDERED: magnesium Cl slow-release 64mg tablet PO PRN (16:20)
[2023-05-08] MEDS ORDERED: cloNIDine 0.1 mg tablet PO PRN (17:45)
[2023-05-08] MEDS ORDERED: haloperidol lactate 5mg/ml inj IM PRN (17:45)
[2023-05-08] MEDS ORDERED: dicyclomine 10 MG capsule PO PRN (17:45)
[2023-05-08 17:52] LABS: HEMOGLOBIN A1C 4.9 % (4.5-6.2)
[2023-05-08] MEDS ORDERED: TRAZ300T2 PO (18:15)
[2023-05-08] MEDS ORDERED: ONDA-103 PO (18:15)
[2023-05-08] MEDS: ipratropium/albuterol 3ml nebule NEB SCH (20:15)
[2023-05-08] MEDS: thiamine 100mg/ml 2ml inj. IV SCH (20:15)
[2023-05-08] MEDS: heparin, porcine 5000 units/ml vial SQ SCH (20:15)
[2023-05-08 20:16] VITALS: PULSE 70; RESP 18; O2SAT 96
[2023-05-08 20:24] VITALS: PULSE 70; RESP 18
[2023-05-08] MEDS: guaiFENesin/DM 10ml UD oral syrup PO PRN (21:23)
[2023-05-08 22:00] VITALS: BP 118/73; PULSE 77; RESP 15; TEMP 99.5; O2SAT 94
[2023-05-08] MEDS: traZODone 150mg tablet PO SCH (22:51)
[2023-05-09] VITALS (12 sets, daily range): BP systolic 96–129; BP diastolic 50–76; PULSE 60–117; RESP 16–24; TEMP 97.2–98.5; O2SAT 91–98
[2023-05-09] MEDS: ipratropium/albuterol 3ml nebule NEB SCH ×4 (03:00→21:00)
[2023-05-09] MEDS: guaiFENesin/DM 10ml UD oral syrup PO PRN (04:32)
[2023-05-09] MEDS ORDERED: azithromycin/NS 500mg/250ml 250 ML IV SCH ×2 (08:00)
[2023-05-09] MEDS: multivitamins, therapeutics tablet PO SCH (08:23)
[2023-05-09] MEDS: thiamine 100mg/ml 2ml inj. IV SCH ×3 (08:23→19:20)
[2023-05-09] MEDS: methylPREDNISolone sod succ 125mg/2ml vial IV SCH ×2 (08:23→19:20)
[2023-05-09] MEDS: CefTRIAXone/D5W-Rocephin 1gm 50 ML IV SCH (08:23)
[2023-05-09] MEDS: folic acid 1mg/0.2ml inj IV SCH (08:23)
[2023-05-09] MEDS: heparin, porcine 5000 units/ml vial SQ SCH ×2 (08:24→19:20)
[2023-05-09] MEDS: azithromycin/NS 500mg/250ml 250 ML IV SCH (09:17)
[2023-05-09] MEDS: LORazepam 2 mg/ml vial IV PRN ×3 (10:19→20:09)
[2023-05-09] MEDS: guaiFENesin ER 600mg tablet PO PRN (10:29)
[2023-05-09] MEDS: nicotine 21mg patch - 24 hr TD SCH (10:31)
[2023-05-09 12:36] LABS: BASOPHILS % (AUTO) 0.1 % (0-1); EOSINOPHILS % (AUTO) 0 % (0-6); HEMOGLOBIN 14.1 g/dl (12.0-16.0); LYMPHOCYTES # (AUTO) 0.3 X10'3 (1.1-4.8); LYMPHOCYTES % (AUTO) 3.4 % (21-51); MEAN CORPUSCULAR HEMOGLOBIN 30.5 PG (27.0-31.0); MEAN CORPUSCULAR HGB CONC 32.7 g/dL (33.0-36.5); MEAN CORPUSCULAR VOLUME 93.4 FL (78-98); MEAN PLATELET VOLUME 8.6 FL (7.4-10.4); MONOCYTES # (AUTO) 0.2 X10'3 (0-0.9); MONOCYTES % (AUTO) 2.1 % (2-12); NEUTROPHILS # (AUTO) 7.7 X10'3 (1.8-7.7); NEUTROPHILS % (AUTO) 94.4 % (42-75); PLATELET COUNT 124 X10'3 (140-440); RED BLOOD COUNT 4.61 X10'6 (4.20-5.60); RED CELL DISTRIBUTION WIDTH 14.1 % (11.5-14.5); WHITE BLOOD COUNT 8.1 X10'3 (4.5-11.0)
[2023-05-09 13:01] LABS: ALANINE AMINOTRANSFERASE 30 U/L (12-78); ALBUMIN 3.1 G/DL (3.4-5.0); ALBUMIN/GLOBULIN RATIO 0.8 (1.1-1.5); ALKALINE PHOSPHATASE 81 IU/L (46-116); ANION GAP 11 (8-16); ASPARTATE AMINO TRANSFERASE 18 U/L (10-37); BILIRUBIN,TOTAL 0.3 MG/DL (0.1-1.0); BLOOD UREA NITROGEN 9 MG/DL (7-18); BUN/CREATININE RATIO 10.8 (10.0-20.0); CALCIUM 9.7 MG/DL (8.5-10.1); CHLORIDE 105 MMOL/L (99-107); CHOL/HDL RATIO 1.8 (0.00-4.99); CHOLESTEROL 168 MG/DL (0-200); CREATININE 0.83 MG/DL (0.40-0.90); GLUCOSE 99 MG/DL (70-104); HDL CHOLESTEROL 96 MG/DL (35-60); LDL CHOLESTEROL 46 MG/DL (50-100); MAGNESIUM 1.9 MG/DL (1.5-2.4); PHOSPHORUS 2.2 MG/DL (2.3-4.5); POTASSIUM 3.5 MMOL/L (3.5-5.1); SODIUM 138 MMOL/L (135-145); TOTAL CARBON DIOXIDE 22.4 MMOL/L (24-32); TOTAL PROTEIN 7.1 G/DL (6.4-8.2); TRIGLYCERIDES 83 MG/DL (20-135); eCRCL 56 ML/MIN; eGFR 69 ML/MIN
[2023-05-09] MEDS: traZODone 150mg tablet PO SCH (19:21)
[2023-05-10] VITALS (12 sets, daily range): BP systolic 98–127; BP diastolic 53–69; PULSE 71–100; RESP 16–24; TEMP 97.4–99.1; O2SAT 92–97
[2023-05-10] MEDS: ipratropium/albuterol 3ml nebule NEB SCH ×4 (03:00→21:08)
[2023-05-10] MEDS: methylPREDNISolone sod succ 125mg/2ml vial IV SCH ×2 (07:10→20:04)
[2023-05-10] MEDS: heparin, porcine 5000 units/ml vial SQ SCH ×2 (07:10→20:05)
[2023-05-10] MEDS: guaiFENesin ER 600mg tablet PO PRN ×2 (07:10→20:11)
[2023-05-10] MEDS: thiamine 100mg/ml 2ml inj. IV SCH ×2 (07:10→13:00)
[2023-05-10] MEDS: nicotine 21mg patch - 24 hr TD SCH (07:10)
[2023-05-10] MEDS: CefTRIAXone/D5W-Rocephin 1gm 50 ML IV SCH (07:10)
[2023-05-10] MEDS: multivitamins, therapeutics tablet PO SCH (07:10)
[2023-05-10] MEDS: LORazepam 2 mg/ml vial IV PRN ×3 (08:41→20:06)
[2023-05-10] MEDS: azithromycin/NS 500mg/250ml 250 ML IV SCH (08:41)
[2023-05-10] MEDS: folic acid 1mg/0.2ml inj IV SCH (08:41)
[2023-05-10] MEDS ORDERED: thiamine 100mg tablet PO SCH (13:21)
[2023-05-10] MEDS: traZODone 150mg tablet PO SCH (20:05)
[2023-05-10] MEDS: thiamine 100mg tablet PO SCH (20:05)
[2023-05-11] VITALS (7 sets, daily range): BP systolic 104–122; BP diastolic 57–77; PULSE 58–96; RESP 13–18; TEMP 97.5–98.4; O2SAT 93–97
[2023-05-11] MEDS: ipratropium/albuterol 3ml nebule NEB SCH ×2 (03:00→09:50)
[2023-05-11] MEDS ORDERED: folic acid 1mg tablet PO SCH (08:00)
[2023-05-11] MEDS: guaiFENesin ER 600mg tablet PO PRN (09:17)
[2023-05-11] MEDS: thiamine 100mg tablet PO SCH ×2 (09:17→14:42)
[2023-05-11] MEDS: multivitamins, therapeutics tablet PO SCH (09:17)
[2023-05-11] MEDS: CefTRIAXone/D5W-Rocephin 1gm 50 ML IV SCH (09:18)
[2023-05-11] MEDS: nicotine 21mg patch - 24 hr TD SCH (09:18)
[2023-05-11] MEDS: heparin, porcine 5000 units/ml vial SQ SCH (09:18)
[2023-05-11] MEDS: methylPREDNISolone sod succ 125mg/2ml vial IV SCH (09:19)
[2023-05-11] MEDS: azithromycin/NS 500mg/250ml 250 ML IV SCH (10:01)
[2023-05-11] MEDS ORDERED: LEVO-65 PO (12:21)
[2023-05-11] MEDS ORDERED: PRED20TA PO (12:21)
== END 2023-05-11 15:48 | disposition home or self-care (01) | DRG 140 ==
LOC: ER 13:06 → ED HOLD 16:32 → PCU 3S 19:15
PROVIDERS: ADMIT Family Medicine; ATTEND Family Medicine
DX: J44.1 Chronic obstructive pulmonary disease with (acute) exacerbation (principal); J96.21 Acute and chronic respiratory failure with hypoxia; D69.6 Thrombocytopenia, unspecified; E87.3 Alkalosis; I25.10 Atherosclerotic heart disease of native coronary artery without angina pectoris; F32.A Depression, unspecified; F41.9 Anxiety disorder, unspecified; K21.9 Gastro-esophageal reflux disease without esophagitis; Z20.822 Contact with and (suspected) exposure to COVID-19; F10.20 Alcohol dependence, uncomplicated; F17.210 Nicotine dependence, cigarettes, uncomplicated; I25.2 Old myocardial infarction; Z82.49 Family history of ischemic heart disease and other diseases of the circulatory system; Z85.41 Personal history of malignant neoplasm of cervix uteri; Z87.01 Personal history of pneumonia (recurrent); Z79.899 Other long term (current) drug therapy; Z90.49 Acquired absence of other specified parts of digestive tract; Z86.19 Personal history of other infectious and parasitic diseases; Z98.891 History of uterine scar from previous surgery; Z71.6 Tobacco abuse counseling
CPT/HCPCS: 36415; 36600; 71045; 80048; 80053; 80061; 81003; 82803; 83036; 83605; 83735; 83880; 84100; 84484; 85018; 85025; 87040; 87081; 87502; 87503; 87811; 94640; 94760; 97161; 97530; 99285; A4615; G0378; J0456; J0696; J1644; J2060; J2930; J3411; J3490; J7030; J7040

== ENCOUNTER 2023-06-09 15:11 | Inpatient (IN) | payer MEDICAID ==
[~2023-06-09] VITALS: Ht 160 cm; Wt 55.5 kg
[~2023-06-09 15:11] MED LIST changes: -BACL20TA PO; -GUAI600T45 PO; +LEVO-65 PO; +ONDA-103 PO; +PRED20TA PO; -PRED50TA PO; -PROC10TA97 PO; +TRAZ300T2 PO
[2023-06-09] MEDS: methylPREDNISolone sod succ 125mg/2ml vial IV ONE (15:32)
[2023-06-09] MEDS: magnesium 2GM in 50ml NS 50 ML IV ONE (15:32)
[2023-06-09] MEDS: ipratropium 0.5 MG/2.5ML nebule IH ONE (15:59)
[2023-06-09] MEDS: albuterol 2.5 MG/3 ML nebule CONTNEB PRN (15:59)
[2023-06-09 16:01] VITALS: PULSE 79; RESP 20; O2SAT 97
[2023-06-09 16:10] LABS: BASOPHILS # (AUTO) 0.1 X10'3 (0-0.2); BASOPHILS % (AUTO) 3.1 % (0-1); EOSINOPHILS # (AUTO) 0.1 X10'3 (0-0.9); EOSINOPHILS % (AUTO) 2.2 % (0-6); HEMATOCRIT 42.5 % (35.0-45.0); HEMOGLOBIN 14.4 g/dl (12.0-16.0); LYMPHOCYTES # (AUTO) 0.9 X10'3 (1.1-4.8); LYMPHOCYTES % (AUTO) 18.9 % (21-51); MEAN CORPUSCULAR HEMOGLOBIN 30.9 PG (27.0-31.0); MEAN CORPUSCULAR HGB CONC 33.8 g/dL (33.0-36.5); MEAN CORPUSCULAR VOLUME 91.5 FL (78-98); MEAN PLATELET VOLUME 8.6 FL (7.4-10.4); MONOCYTES # (AUTO) 0.3 X10'3 (0-0.9); MONOCYTES % (AUTO) 6.8 % (2-12); NEUTROPHILS # (AUTO) 3.3 X10'3 (1.8-7.7); PLATELET COUNT 149 X10'3 (140-440); RED BLOOD COUNT 4.64 X10'6 (4.20-5.60); RED CELL DISTRIBUTION WIDTH 13.6 % (11.5-14.5); WHITE BLOOD COUNT 4.8 X10'3 (4.5-11.0)
[2023-06-09 16:21] LABS: ALBUMIN 3.1 G/DL (3.4-5.0); ANION GAP 7 (8-16); BLOOD UREA NITROGEN 6 MG/DL (7-18); BUN/CREATININE RATIO 8.2 (10.0-20.0); CALCIUM 9.1 MG/DL (8.5-10.1); CHLORIDE 101 MMOL/L (99-107); CREATININE 0.73 MG/DL (0.40-0.90); GLUCOSE 86 MG/DL (70-104); PRO BRAIN NATRIURETIC PEPTIDE 86 PG/ML (0-125); SODIUM 138 MMOL/L (135-145); TOTAL CARBON DIOXIDE 29.6 MMOL/L (24-32); eCRCL 64 ML/MIN; eGFR 80 ML/MIN
[2023-06-09 16:26] LABS: POTASSIUM 4.4 MMOL/L (3.5-5.1)
[2023-06-09 17:34] VITALS: PULSE 90; RESP 20; O2SAT 96
[2023-06-09] MEDS ORDERED: acetaminophen 325mg tablet PO PRN ×2 (17:40)
[2023-06-09] MEDS ORDERED: HYDROmorphone/PF 0.2 MG/ML SYRINGE IV PRN (17:40)
[2023-06-09] MEDS ORDERED: acetaminophen 650mg rectal suppository RC PRN (17:40)
[2023-06-09] MEDS ORDERED: HYDROcodone/acetaminophen 10/325mg tab PO PRN (17:40)
[2023-06-09] MEDS ORDERED: ondansetron/PF 4mg/2ml inj IV PRN (17:40)
[2023-06-09] MEDS ORDERED: HYDROmorphone inj. 0.5 MG/0.5 ML DISP.SYRIN IV PRN (17:40)
[2023-06-09] MEDS ORDERED: magnesium hydroxide 30ml (MOM) UD suspension PO PRN (17:40)
[2023-06-09] MEDS ORDERED: magnesium 2GM in 50ml NS 50 ML IV PRN (17:40)
[2023-06-09] MEDS ORDERED: potassium Cl 40MEQ/1/2NS 520ml 520 ML IV PRN (17:40)
[2023-06-09] MEDS ORDERED: potassium Cl 20 mEq SR tablet PO PRN ×2 (17:40)
[2023-06-09] MEDS ORDERED: ondansetron 4mg rapidly disintigrating tab PO PRN (17:40)
[2023-06-09] MEDS ORDERED: LORazepam 0.5 MG tablet PO PRN (17:40)
[2023-06-09] MEDS ORDERED: mag hydrox/Alum hydrox/simeth 30ml oral suspension PO PRN (17:40)
[2023-06-09] MEDS ORDERED: ipratropium/albuterol 3ml nebule NEB PRN (17:40)
[2023-06-09] MEDS ORDERED: magnesium Cl slow-release 64mg tablet PO PRN (17:40)
[2023-06-09] MEDS ORDERED: magnesium 4gm in 100ml NS 100 ML IV PRN (17:40)
[2023-06-09] MEDS ORDERED: haloperidol lactate 5mg/ml inj IM PRN (18:10)
[2023-06-09] MEDS: ipratropium/albuterol 3ml nebule NEB SCH (18:52)
[2023-06-09] MEDS: normal saline 1000ml 1,000 ML IV SCH (19:01)
[2023-06-09] MEDS: levoFLOXACIN-Levaquin 500mg/D5 100 ML IV SCH (19:01)
[2023-06-09] MEDS: CefTRIAXone 2gm/D5W 50ml BAG 50 ML IV ONE (19:01)
[2023-06-09] MEDS: nicotine 14mg patch - 24hr TD SCH (19:18)
[2023-06-09] MEDS: K and/or MAG REPLACEMENT MC SCH (20:00)
[2023-06-09] MEDS: docusate sod 100mg capsule PO SCH (20:00)
[2023-06-09 20:30] VITALS: BP 108/60; PULSE 89; RESP 24; TEMP 97.5; O2SAT 96
[2023-06-09] MEDS: methylPREDNISolone sod succ/PF 40mg inj. IV SCH (20:43)
[2023-06-09] MEDS: LORazepam 1 MG tablet PO PRN (20:43)
[2023-06-09] MEDS: traZODone 150mg tablet PO SCH (20:43)
[2023-06-09] MEDS: famotidine 20mg tablet PO SCH (20:43)
[2023-06-09] MEDS: gabapentin 100mg capsule PO SCH (20:43)
[2023-06-09 21:00] VITALS: RESP 24
[2023-06-09] MEDS ORDERED: temazepam 15mg capsule PO PRN (21:00)
[2023-06-09 22:00] VITALS: BP 99/65; PULSE 78; RESP 20; TEMP 98.2; O2SAT 96
[2023-06-09 23:17] VITALS: PULSE 81; RESP 16; O2SAT 94
[2023-06-10] VITALS (12 sets, daily range): BP systolic 111–116; BP diastolic 70–71; PULSE 68–110; RESP 16–24; TEMP 98.1; O2SAT 90–97
[2023-06-10 00:05] LABS: URINE AMPHETAMINE SCREEN NEGATIVE (Neg); URINE BARBITUATE SCREEN NEGATIVE (Neg); URINE BENZODIAZEPINES SCREEN NEGATIVE (Neg); URINE CANNABINOID SCREEN NEGATIVE (Neg); URINE COCAINE SCREEN NEGATIVE (Neg); URINE METHADONE SCREEN NEGATIVE (Neg); URINE OPIATE SCREEN NEGATIVE (Neg); URINE PHENCYCLIDINE SCREEN NEGATIVE (Neg)
[2023-06-10] MEDS ORDERED: guaiFENesin ER 600mg tablet PO PRN (05:50)
[2023-06-10] MEDS: multivitamins, therapeutics tablet PO SCH (07:41)
[2023-06-10] MEDS: HYDROcodone/acetaminophen 5mg/325mg tablet PO PRN (07:41)
[2023-06-10] MEDS: enoxaparin 40mg/0.4ml syringe SUBCUT SCH (07:42)
[2023-06-10 08:26] LABS: BASOPHILS % (AUTO) 0.1 % (0-1); EOSINOPHILS % (AUTO) 0 % (0-6); HEMATOCRIT 41.4 % (35.0-45.0); HEMOGLOBIN 13.8 g/dl (12.0-16.0); LYMPHOCYTES # (AUTO) 0.3 X10'3 (1.1-4.8); LYMPHOCYTES % (AUTO) 5.9 % (21-51); MEAN CORPUSCULAR HEMOGLOBIN 30.8 PG (27.0-31.0); MEAN CORPUSCULAR HGB CONC 33.4 g/dL (33.0-36.5); MEAN CORPUSCULAR VOLUME 92.4 FL (78-98); MONOCYTES # (AUTO) 0.1 X10'3 (0-0.9); NEUTROPHILS # (AUTO) 4.5 X10'3 (1.8-7.7); PLATELET COUNT 132 X10'3 (140-440); RED BLOOD COUNT 4.48 X10'6 (4.20-5.60); RED CELL DISTRIBUTION WIDTH 13.6 % (11.5-14.5); WHITE BLOOD COUNT 4.9 X10'3 (4.5-11.0)
[2023-06-10 08:47] LABS: ALANINE AMINOTRANSFERASE 28 U/L (12-78); ALBUMIN/GLOBULIN RATIO 0.8 (1.1-1.5); ALKALINE PHOSPHATASE 94 IU/L (46-116); ANION GAP 10 (8-16); ASPARTATE AMINO TRANSFERASE 33 U/L (10-37); BILIRUBIN,TOTAL 0.2 MG/DL (0.1-1.0); BLOOD UREA NITROGEN 11 MG/DL (7-18); BUN/CREATININE RATIO 12.6 (10.0-20.0); CHLORIDE 103 MMOL/L (99-107); CREATININE 0.87 MG/DL (0.40-0.90); GLUCOSE 187 MG/DL (70-104); POTASSIUM 4.5 MMOL/L (3.5-5.1); SODIUM 138 MMOL/L (135-145); TOTAL CARBON DIOXIDE 25.2 MMOL/L (24-32); TOTAL PROTEIN 6.8 G/DL (6.4-8.2); eCRCL 54 ML/MIN; eGFR 66 ML/MIN
[2023-06-10] MEDS: LORazepam 2 mg/ml vial IV PRN (12:52)
[2023-06-10] MEDS: haloperidol 5mg tablet PO PRN (14:17)
[2023-06-11] VITALS (10 sets, daily range): BP systolic 111–129; BP diastolic 72–73; PULSE 62–100; RESP 15–20; TEMP 97.3–97.5; O2SAT 96–99
[2023-06-11] MEDS ORDERED: NICO-631 TD (15:56)
[2023-06-11] MEDS ORDERED: PRED10TA PO (15:56)
[2023-06-11] MEDS ORDERED: IPRA3AMP31 IH (15:56)
[2023-06-11] MEDS ORDERED: NALT50TA PO (15:56)
[2023-06-14] MEDS ORDERED: folic acid 1mg tablet PO SCH (08:00)
[2023-06-14] MEDS ORDERED: thiamine 100mg tablet PO SCH (08:00)
== END 2023-06-11 18:12 | disposition home or self-care (01) | DRG 140 ==
LOC: ER 15:11 → ED HOLD 17:44 → EDBEDREQ 19:36 → ORTHO 4S 20:37
PROVIDERS: ADMIT Family Medicine; ATTEND Family Medicine
DX: J44.1 Chronic obstructive pulmonary disease with (acute) exacerbation (principal); J96.21 Acute and chronic respiratory failure with hypoxia; Z20.822 Contact with and (suspected) exposure to COVID-19; F10.10 Alcohol abuse, uncomplicated; F17.210 Nicotine dependence, cigarettes, uncomplicated; G25.81 Restless legs syndrome; G47.00 Insomnia, unspecified; Z79.899 Other long term (current) drug therapy; Z99.81 Dependence on supplemental oxygen; Z82.49 Family history of ischemic heart disease and other diseases of the circulatory system; Z88.5 Allergy status to narcotic agent; Z90.49 Acquired absence of other specified parts of digestive tract; Z98.891 History of uterine scar from previous surgery
CPT/HCPCS: 36415; 71045; 80048; 80053; 80305; 83605; 83735; 83880; 84484; 85025; 87040; 87081; 87811; 93005; 94640; 94760; 97116; 97161; 97530; 99285; A4615; A6258; A6449; A7015; G0378; J0696; J1650; J1956; J2060; J2920; J2930; J3475; J7030

== ENCOUNTER 2023-08-17 15:22 | Emergency (ER) | payer MEDICARE, MEDICAID ==
[~2023-08-17] VITALS: Ht 160 cm; Wt 57.7 kg
[~2023-08-17 15:22] MED LIST changes: +ADV50250 IH; -ALBU18HF2 INH; -ALBU8HFA PO; -ALBU90AE; +ALBU90AE INH; -FLUT1BLS4 PO; +FOLI1CAP8 PO; +GABA600T13 PO; +GUAI600T45 PO; +IPRA3AMP31 NEB; +LACT1CAP76 PO; -LEVO-65 PO; +NICO-631 TD; +NICO-669 SL; -PANT40TA54 PO; +PRED10TA23 PO; -PRED20TA PO; -TRAZ150T78 PO
[2023-08-17 15:24] VITALS: TEMP 98.5
[2023-08-17] MEDS: aspirin 81mg tab.chew PO ONE (16:00)
[2023-08-17 16:09] LABS: BASOPHILS # (AUTO) 0.1 X10'3 (0-0.2); BASOPHILS % (AUTO) 1.9 % (0-1); EOSINOPHILS % (AUTO) 0.6 % (0-6); HEMATOCRIT 37.4 % (35.0-45.0); HEMOGLOBIN 12.4 g/dl (12.0-16.0); LYMPHOCYTES # (AUTO) 0.4 X10'3 (1.1-4.8); LYMPHOCYTES % (AUTO) 8.4 % (21-51); MEAN CORPUSCULAR HEMOGLOBIN 31.1 PG (27.0-31.0); MEAN CORPUSCULAR HGB CONC 33.1 g/dL (33.0-36.5); MEAN PLATELET VOLUME 8.6 FL (7.4-10.4); MONOCYTES # (AUTO) 0.3 X10'3 (0-0.9); MONOCYTES % (AUTO) 6.8 % (2-12); NEUTROPHILS # (AUTO) 3.6 X10'3 (1.8-7.7); NEUTROPHILS % (AUTO) 82.3 % (42-75); PLATELET COUNT 98 X10'3 (140-440); RED BLOOD COUNT 3.98 X10'6 (4.20-5.60); RED CELL DISTRIBUTION WIDTH 14.7 % (11.5-14.5); WHITE BLOOD COUNT 4.3 X10'3 (4.5-11.0)
[2023-08-17 16:29] LABS: APTT 24 SECONDS (22-32); PROTHROMBIN TIME 10.4 SECONDS (9.0-12.0)
[2023-08-17 16:50] LABS: BILIRUBIN,URINE NEGATIVE (Neg); CLARITY,URINE CLEAR (Clear); GLUCOSE, URINE NEGATIVE (Neg); KETONES,URINE NEGATIVE (Neg); LEUKOCYTE ESTERASE ,URINE NEGATIVE (Neg); NITRITES, URINE NEGATIVE (Neg); OCCULT BLOOD,URINE TRACE-INTACT (Neg); PROTEIN,URINE NEGATIVE (Neg); UROBILINOGEN,URINE 0.2 E.U/dL (0.2-1.0)
[2023-08-17 16:59] LABS: COLOR,URINE STRAW (Yellow); UA COLLECTION TYPE CLN CATCH MIDSTREAM
[2023-08-17 17:04] LABS: SQUAMOUS EPITHELIAL CELL,UR FEW /LPF (FEW)
[2023-08-17 17:05] LABS: BACTERIA,URINE FEW /HPF (Neg); RBC,URINE 0-2 /HPF (0-2); WBC,URINE 0-4 /HPF (0-4)
[2023-08-17 17:58] VITALS: BP 105/67; PULSE 69; RESP 17; O2SAT 97
[2023-08-17 19:09] LABS: ALBUMIN 3.2 G/DL (3.4-5.0); ANION GAP 12 (8-16); BLOOD UREA NITROGEN 13 MG/DL (7-18); BUN/CREATININE RATIO 15.9 (10.0-20.0); CALCIUM 9.4 MG/DL (8.5-10.1); CHLORIDE 105 MMOL/L (99-107); CREATININE 0.82 MG/DL (0.40-0.90); GLUCOSE 112 MG/DL (70-104); MAGNESIUM 1.8 MG/DL (1.5-2.4); PRO BRAIN NATRIURETIC PEPTIDE 187 PG/ML (0-125); SODIUM 138 MMOL/L (135-145); TOTAL CARBON DIOXIDE 21.4 MMOL/L (24-32); eCRCL 57 ML/MIN; eGFR 70 ML/MIN
== END 2023-08-17 21:26 | disposition left against medical advice (07) ==
LOC: ER 15:23
DX: G45.9 Transient cerebral ischemic attack, unspecified (principal); J44.1 Chronic obstructive pulmonary disease with (acute) exacerbation; R73.9 Hyperglycemia, unspecified; K21.9 Gastro-esophageal reflux disease without esophagitis; Z88.5 Allergy status to narcotic agent; Z79.899 Other long term (current) drug therapy; Z90.49 Acquired absence of other specified parts of digestive tract
CPT/HCPCS: 36415; 70450; 71045; 80048; 81001; 82948; 83735; 83880; 84484; 85025; 85610; 85730; 93005; 99285

== ENCOUNTER 2023-10-02 14:07 | Inpatient (IN) | payer MEDICARE, MEDICAID ==
[~2023-10-02] VITALS: Ht 160 cm; Wt 63.9 kg
[~2023-10-02 14:07] MED LIST changes: -ADV50250 IH; -ALBU90AE INH; -PRED10TA23 PO
[2023-10-02 15:33] LABS: BASOPHILS % (AUTO) 0.4 % (0-1); EOSINOPHILS # (AUTO) 0.3 X10'3 (0-0.9); EOSINOPHILS % (AUTO) 5.9 % (0-6); HEMATOCRIT 37.4 % (35.0-45.0); HEMOGLOBIN 12.4 g/dl (12.0-16.0); LYMPHOCYTES # (AUTO) 0.8 X10'3 (1.1-4.8); LYMPHOCYTES % (AUTO) 17.8 % (21-51); MEAN CORPUSCULAR HEMOGLOBIN 30.8 PG (27.0-31.0); MEAN CORPUSCULAR VOLUME 93.3 FL (78-98); MEAN PLATELET VOLUME 8.5 FL (7.4-10.4); MONOCYTES # (AUTO) 0.5 X10'3 (0-0.9); MONOCYTES % (AUTO) 10.4 % (2-12); NEUTROPHILS % (AUTO) 65.5 % (42-75); PLATELET COUNT 121 X10'3 (140-440); RED BLOOD COUNT 4.01 X10'6 (4.20-5.60); RED CELL DISTRIBUTION WIDTH 13.2 % (11.5-14.5); WHITE BLOOD COUNT 4.5 X10'3 (4.5-11.0)
[2023-10-02 15:54] LABS: ALBUMIN 3.1 G/DL (3.4-5.0); ANION GAP 11 (8-16); BLOOD UREA NITROGEN 6 MG/DL (7-18); BUN/CREATININE RATIO 7.4 (10.0-20.0); CALCIUM 9.2 MG/DL (8.5-10.1); CHLORIDE 98 MMOL/L (99-107); CREATININE 0.81 MG/DL (0.40-0.90); GLUCOSE 88 MG/DL (70-104); POTASSIUM 4.1 MMOL/L (3.5-5.1); PRO BRAIN NATRIURETIC PEPTIDE 111 PG/ML (0-125); SODIUM 134 MMOL/L (135-145); TOTAL CARBON DIOXIDE 25.1 MMOL/L (24-32); eCRCL 57 ML/MIN; eGFR 71 ML/MIN
[2023-10-02] MEDS ORDERED: magnesium 2GM in 50ml NS 50 ML IV PRN (15:55)
[2023-10-02] MEDS ORDERED: potassium Cl 20 mEq SR tablet PO PRN ×2 (15:55)
[2023-10-02] MEDS ORDERED: acetaminophen 325mg tablet PO PRN (15:55)
[2023-10-02] MEDS ORDERED: mag hydrox/Alum hydrox/simeth 30ml oral suspension PO PRN (15:55)
[2023-10-02] MEDS ORDERED: ipratropium/albuterol 3ml nebule NEB PRN ×2 (15:55)
[2023-10-02] MEDS ORDERED: potassium Cl 40MEQ/1/2NS 520ml 520 ML IV PRN (15:55)
[2023-10-02] MEDS ORDERED: magnesium hydroxide 30ml (MOM) UD suspension PO PRN (15:55)
[2023-10-02] MEDS ORDERED: magnesium Cl slow-release 64mg tablet PO PRN (15:55)
[2023-10-02] MEDS ORDERED: magnesium 4gm in 100ml NS 100 ML IV PRN (15:55)
[2023-10-02] MEDS ORDERED: LORA10TA7 PO (16:10)
[2023-10-02] MEDS ORDERED: ROPI0.2544 PO (16:10)
[2023-10-02] MEDS: methylPREDNISolone sod succ 125mg/2ml vial IV SCH (16:11)
[2023-10-02] MEDS: CefTRIAXone/D5W-Rocephin 1gm 50 ML IV ONE ×2 (16:11→17:07)
[2023-10-02] MEDS: ipratropium/albuterol 3ml nebule NEB PRN (16:16)
[2023-10-02 16:18] VITALS: PULSE 70; RESP 16; O2SAT 100
[2023-10-02 16:24] VITALS: PULSE 73; RESP 15
[2023-10-02 16:43] LABS: HEMOGLOBIN A1C 4.7 % (4.5-6.2)
[2023-10-02 19:18] VITALS: PULSE 80; RESP 16; O2SAT 95
[2023-10-02 19:24] VITALS: PULSE 80; RESP 16
[2023-10-02] MEDS: docusate sod 100mg capsule PO SCH (19:45)
[2023-10-02] MEDS: K and/or MAG REPLACEMENT MC SCH (19:57)
[2023-10-03] VITALS (13 sets, daily range): BP systolic 85–141; BP diastolic 47–77; PULSE 68–110; RESP 14–20; TEMP 97.1–97.8; O2SAT 92–97
[2023-10-03] MEDS: guaiFENesin/DM 10ml UD oral syrup PO PRN (02:22)
[2023-10-03] MEDS: HYDROcodone/acetaminophen 5mg/325mg tablet PO PRN (08:03)
[2023-10-03] MEDS: enoxaparin 40mg/0.4ml syringe SUBCUT SCH (08:04)
[2023-10-03] MEDS: CefTRIAXone/D5W-Rocephin 1gm 50 ML IV SCH (08:09)
[2023-10-03 08:25] LABS: BASOPHILS % (AUTO) 0.2 % (0-1); EOSINOPHILS % (AUTO) 0.1 % (0-6); HEMATOCRIT 39.1 % (35.0-45.0); HEMOGLOBIN 12.8 g/dl (12.0-16.0); LYMPHOCYTES # (AUTO) 0.3 X10'3 (1.1-4.8); LYMPHOCYTES % (AUTO) 6.6 % (21-51); MEAN CORPUSCULAR HEMOGLOBIN 30.6 PG (27.0-31.0); MEAN CORPUSCULAR HGB CONC 32.7 g/dL (33.0-36.5); MEAN CORPUSCULAR VOLUME 93.4 FL (78-98); MEAN PLATELET VOLUME 9.2 FL (7.4-10.4); MONOCYTES # (AUTO) 0.1 X10'3 (0-0.9); MONOCYTES % (AUTO) 1.7 % (2-12); NEUTROPHILS % (AUTO) 91.4 % (42-75); PLATELET COUNT 112 X10'3 (140-440); RED BLOOD COUNT 4.19 X10'6 (4.20-5.60); RED CELL DISTRIBUTION WIDTH 13.5 % (11.5-14.5); WHITE BLOOD COUNT 4.4 X10'3 (4.5-11.0)
[2023-10-03] MEDS: ondansetron/PF 4mg/2ml inj IV PRN (08:27)
[2023-10-03 08:46] LABS: ALANINE AMINOTRANSFERASE 42 U/L (12-78); ALBUMIN/GLOBULIN RATIO 0.8 (1.1-1.5); ALKALINE PHOSPHATASE 69 IU/L (46-116); ANION GAP 9 (8-16); ASPARTATE AMINO TRANSFERASE 24 U/L (10-37); BILIRUBIN,TOTAL 0.3 MG/DL (0.1-1.0); BLOOD UREA NITROGEN 14 MG/DL (7-18); BUN/CREATININE RATIO 15.7 (10.0-20.0); CALCIUM 9.2 MG/DL (8.5-10.1); CHLORIDE 101 MMOL/L (99-107); CHOL/HDL RATIO 1.7 (0.00-4.99); CHOLESTEROL 171 MG/DL (0-200); CREATININE 0.89 MG/DL (0.40-0.90); GLUCOSE 155 MG/DL (70-104); HDL CHOLESTEROL 102 MG/DL (35-60); LDL CHOLESTEROL 54 MG/DL (50-100); MAGNESIUM 2.1 MG/DL (1.5-2.4); POTASSIUM 4.5 MMOL/L (3.5-5.1); SODIUM 136 MMOL/L (135-145); TOTAL CARBON DIOXIDE 25.6 MMOL/L (24-32); TOTAL PROTEIN 6.9 G/DL (6.4-8.2); TRIGLYCERIDES 34 MG/DL (20-135); eCRCL 52 ML/MIN; eGFR 64 ML/MIN
[2023-10-03] MEDS: pneumococcal 23-VAL P-sac vacc 25 mcg/0.5ml vial IMVAC ONE (10:00)
[2023-10-03] MEDS ORDERED: diphenoxylate/atropine tablet (Lomotil) PO PRN (13:05)
[2023-10-03] MEDS ORDERED: LORazepam 1 MG tablet PO PRN (16:15)
[2023-10-03] MEDS: HYDROcodone/acetaminophen 10/325mg tab PO PRN (19:29)
[2023-10-03] MEDS: ipratropium/albuterol 3ml nebule NEB SCH (20:06)
[2023-10-03] MEDS: ROPINIRole 0.25mg tablet PO SCH (20:34)
[2023-10-03] MEDS: traZODone 150mg tablet PO SCH (21:00)
[2023-10-04 07:06] VITALS: BP 93/52; PULSE 80; RESP 15; TEMP 96.9; O2SAT 99
[2023-10-04 07:11] VITALS: O2SAT 99
[2023-10-04 07:27] VITALS: PULSE 82; RESP 18; O2SAT 92
[2023-10-04 07:35] VITALS: PULSE 85; RESP 18
[2023-10-04 07:46] LABS: BASOPHILS % (AUTO) 0.2 % (0-1); EOSINOPHILS % (AUTO) 0 % (0-6); HEMATOCRIT 38.1 % (35.0-45.0); HEMOGLOBIN 12.7 g/dl (12.0-16.0); LYMPHOCYTES # (AUTO) 0.3 X10'3 (1.1-4.8); LYMPHOCYTES % (AUTO) 3.7 % (21-51); MEAN CORPUSCULAR HEMOGLOBIN 31.1 PG (27.0-31.0); MEAN CORPUSCULAR HGB CONC 33.3 g/dL (33.0-36.5); MEAN CORPUSCULAR VOLUME 93.4 FL (78-98); MEAN PLATELET VOLUME 8.6 FL (7.4-10.4); MONOCYTES # (AUTO) 0.2 X10'3 (0-0.9); MONOCYTES % (AUTO) 2.5 % (2-12); NEUTROPHILS # (AUTO) 8.1 X10'3 (1.8-7.7); NEUTROPHILS % (AUTO) 93.6 % (42-75); PLATELET COUNT 120 X10'3 (140-440); RED BLOOD COUNT 4.08 X10'6 (4.20-5.60); RED CELL DISTRIBUTION WIDTH 13.1 % (11.5-14.5); WHITE BLOOD COUNT 8.6 X10'3 (4.5-11.0)
[2023-10-04 07:58] LABS: INR 1.1 INR; PROTHROMBIN TIME 11.1 SECONDS (9.0-12.0)
[2023-10-04 08:00] VITALS: RESP 18; O2SAT 95
[2023-10-04] MEDS: nicotine 14mg patch - 24hr TD SCH (08:16)
[2023-10-04] MEDS: multivitamins, therapeutics tablet PO SCH (08:16)
[2023-10-04] MEDS: loratadine 10mg tablet PO SCH (08:17)
[2023-10-04 08:21] LABS: ALANINE AMINOTRANSFERASE 41 U/L (12-78); ALBUMIN 3.1 G/DL (3.4-5.0); ALBUMIN/GLOBULIN RATIO 0.8 (1.1-1.5); ALKALINE PHOSPHATASE 70 IU/L (46-116); AMYLASE 31 U/L (25-115); ANION GAP 7 (8-16); ASPARTATE AMINO TRANSFERASE 21 U/L (10-37); BILIRUBIN,TOTAL 0.3 MG/DL (0.1-1.0); BLOOD UREA NITROGEN 15 MG/DL (7-18); BUN/CREATININE RATIO 17.2 (10.0-20.0); CALCIUM 9.4 MG/DL (8.5-10.1); CHLORIDE 100 MMOL/L (99-107); CREATININE 0.87 MG/DL (0.40-0.90); GLUCOSE 175 MG/DL (70-104); LIPASE 27 U/L (16-77); MAGNESIUM 2.2 MG/DL (1.5-2.4); PHOSPHORUS 3.4 MG/DL (2.3-4.5); POTASSIUM 4.8 MMOL/L (3.5-5.1); SODIUM 135 MMOL/L (135-145); TOTAL CARBON DIOXIDE 27.9 MMOL/L (24-32); eCRCL 53 ML/MIN; eGFR 65 ML/MIN
[2023-10-04 10:00] VITALS: BP 113/62; PULSE 86; RESP 18; TEMP 98.3; O2SAT 95
[2023-10-04] MEDS ORDERED: proCHLORperazine 10mg tablet PO PRN (11:00)
[2023-10-04] MEDS ORDERED: thiamine tablet PO (11:52)
[2023-10-04] MEDS ORDERED: CEFD300C3 PO (11:52)
[2023-10-04] MEDS ORDERED: GUAI600T45 PO (11:52)
[2023-10-04] MEDS ORDERED: MULT-1085 PO (11:52)
[2023-10-04] MEDS ORDERED: FOLI1TAB27 PO (11:52)
[2023-10-04] MEDS ORDERED: PRED10TA23 PO (11:54)
[2023-10-07] MEDS ORDERED: thiamine 100mg tablet PO SCH (08:00)
[2023-10-08] MEDS ORDERED: folic acid 1mg tablet PO SCH (08:00)
== END 2023-10-04 13:46 | disposition home health service (06) | DRG 189 ==
LOC: ER 14:08 → ED HOLD 16:01 → EDBEDREQ 23:25 → ORTHO 4S 23:57
PROVIDERS: ADMIT Internal Medicine; ATTEND Internal Medicine
DX: J96.00 Acute respiratory failure, unspecified whether with hypoxia or hypercapnia (principal); J15.69 Pneumonia due to other Gram-negative bacteria; J44.1 Chronic obstructive pulmonary disease with (acute) exacerbation; J44.0 Chronic obstructive pulmonary disease with (acute) lower respiratory infection; J20.9 Acute bronchitis, unspecified; I10 Essential (primary) hypertension; F10.20 Alcohol dependence, uncomplicated; F32.A Depression, unspecified; F41.9 Anxiety disorder, unspecified; K21.9 Gastro-esophageal reflux disease without esophagitis; G89.29 Other chronic pain; Z20.822 Contact with and (suspected) exposure to COVID-19; M54.9 Dorsalgia, unspecified; Z87.891 Personal history of nicotine dependence; Z85.41 Personal history of malignant neoplasm of cervix uteri; Z88.5 Allergy status to narcotic agent; Z82.49 Family history of ischemic heart disease and other diseases of the circulatory system; Z90.49 Acquired absence of other specified parts of digestive tract; Z98.891 History of uterine scar from previous surgery
CPT/HCPCS: 36415; 71045; 80048; 80053; 80061; 82150; 83036; 83690; 83735; 83880; 84100; 84484; 85025; 85610; 87081; 87502; 87503; 87811; 93005; 93306; 94640; 94760; 97161; 97530; 99285; A6213; A6223; A6446; A6449; G0378; J0696; J1650; J2405; J2919

== ENCOUNTER 2024-04-21 12:27 | Emergency (ER) | payer MEDICARE, MEDICAID ==
[~2024-04-21] VITALS: Ht 160 cm; Wt 68.2 kg
[~2024-04-21 12:27] MED LIST changes: -FOLI1CAP8 PO; +FOLI1TAB27 PO; -GABA600T13 PO; -LACT1CAP76 PO; +LORA10TA7 PO; +MULT-1085 PO; -NICO-669 SL; -ONDA-103 PO; +PRED10TA23 PO; +ROPI0.2544 PO; +thiamine tablet PO
[2024-04-21 12:33] VITALS: TEMP 98
[2024-04-21 13:19] LABS: BASOPHILS % (AUTO) 0.3 % (0-1); EOSINOPHILS # (AUTO) 0.1 X10'3 (0-0.9); EOSINOPHILS % (AUTO) 4.1 % (0-6); HEMATOCRIT 37.9 % (35.0-45.0); HEMOGLOBIN 12.5 g/dl (12.0-16.0); LYMPHOCYTES # (AUTO) 0.7 X10'3 (1.1-4.8); MEAN CORPUSCULAR HEMOGLOBIN 29.7 PG (27.0-31.0); MEAN CORPUSCULAR HGB CONC 33.1 g/dL (33.0-36.5); MEAN CORPUSCULAR VOLUME 89.6 FL (78-98); MEAN PLATELET VOLUME 9.3 FL (7.4-10.4); MONOCYTES # (AUTO) 0.3 X10'3 (0-0.9); MONOCYTES % (AUTO) 10.7 % (2-12); NEUTROPHILS # (AUTO) 1.6 X10'3 (1.8-7.7); NEUTROPHILS % (AUTO) 59.9 % (42-75); PLATELET COUNT 76 X10'3 (140-440); RED BLOOD COUNT 4.23 X10'6 (4.20-5.60); RED CELL DISTRIBUTION WIDTH 14.6 % (11.5-14.5); WHITE BLOOD COUNT 2.6 X10'3 (4.5-11.0)
[2024-04-21 13:50] LABS: ALANINE AMINOTRANSFERASE 47 U/L (12-78); ALBUMIN 3.1 G/DL (3.4-5.0); ALBUMIN/GLOBULIN RATIO 0.8 (1.1-1.5); ALKALINE PHOSPHATASE 98 IU/L (46-116); ANION GAP 6 (8-16); BILIRUBIN,TOTAL 0.5 MG/DL (0.1-1.0); BLOOD UREA NITROGEN 7 MG/DL (7-18); CALCIUM 9.4 MG/DL (8.5-10.1); CHLORIDE 104 MMOL/L (99-107); CREATININE 0.87 MG/DL (0.40-0.90); GLUCOSE 124 MG/DL (70-104); SODIUM 140 MMOL/L (135-145); TOTAL CARBON DIOXIDE 29.6 MMOL/L (24-32); eCRCL 53 ML/MIN; eGFR 65 ML/MIN
[2024-04-21 13:51] LABS: PRO BRAIN NATRIURETIC PEPTIDE 220 PG/ML (0-125)
[2024-04-21 13:52] LABS: ASPARTATE AMINO TRANSFERASE 41 U/L (10-37); POTASSIUM 4.6 MMOL/L (3.5-5.1)
[2024-04-21] MEDS: dexamethasone sod phosphate 10mg/ml inj IV STA (13:52)
[2024-04-21] MEDS: normal saline 1000ML IV soln IVB ONE (13:52)
[2024-04-21] MEDS: CefTRIAXone/D5W-Rocephin 1gm 50 ML IV ONE (13:52)
[2024-04-21] MEDS ORDERED: DOXY100C43 PO (13:57)
[2024-04-21] MEDS ORDERED: PRED20TA PO (13:57)
[2024-04-21 14:01] VITALS: BP 107/70; PULSE 71; RESP 19; O2SAT 96
[2024-04-21 14:19] LABS: TOTAL CELLS COUNTED 100
[2024-04-21 14:20] LABS: PLATELET ESTIMATE DECREASED
[2024-04-24] MEDS ORDERED: GUAI5SYR5 PO (00:21)
[2024-04-24] MEDS ORDERED: ALBU2.5V10 NEB (00:21)
[2024-04-24] MEDS ORDERED: DOXY-460 PO (00:21)
== END 2024-04-21 14:37 | disposition home or self-care (01) ==
LOC: ER 12:28
DX: J44.9 Chronic obstructive pulmonary disease, unspecified (principal); K21.9 Gastro-esophageal reflux disease without esophagitis; G89.29 Other chronic pain; M54.9 Dorsalgia, unspecified; F12.90 Cannabis use, unspecified, uncomplicated; F41.9 Anxiety disorder, unspecified; F32.A Depression, unspecified; F17.210 Nicotine dependence, cigarettes, uncomplicated; F10.10 Alcohol abuse, uncomplicated; F19.90 Other psychoactive substance use, unspecified, uncomplicated; Z88.5 Allergy status to narcotic agent; Z79.899 Other long term (current) drug therapy; Z90.49 Acquired absence of other specified parts of digestive tract; Y90.9 Presence of alcohol in blood, level not specified
CPT/HCPCS: 36415; 71045; 80053; 83605; 83880; 84145; 85007; 85025; 87040; 93005; 96365; 96375; 99285; J0696; J1100; J7030